=== PATIENT | male | born 1985 ===

== ENCOUNTER 2020-08-14 09:06 | Outpatient (CLI) | payer MEDICAID ==
[2020-08-14 15:14] VITALS: BP 148/77
[2020-08-14] MEDS ORDERED: NEXIUM40 MG ORAL (15:16)
[2020-08-14] MEDS ORDERED: [UNRECOGNIZED DRUG - OTHER] (15:16)
--- NOTE | 2020-08-15 18:29 | Consultation ---
DATE OF CONSULTATION: 08/14/2020 GASTROENTEROLOGY CONSULTATION CONSULTING PHYSICIAN: Haris Andres MD REASON FOR REFERRAL: Abdominal pain in left lower quadrant, GERD symptoms, nausea, vomiting, regurgitation. PAST MEDICAL HISTORY: GERD. PAST SURGICAL HISTORY: Appendectomy. MEDICATIONS: Nexium 40 mg daily. FAMILY HISTORY: Noncontributory. SOCIAL HISTORY: The patient occasionally drinks alcohol. No tobacco usage. No drug usage, but the patient uses marijuana. ALLERGIES: No known allergies. REVIEW OF SYSTEMS: Positive for left lower quadrant abdominal pain, GERD, nausea, vomiting, regurgitation symptoms. PHYSICAL EXAMINATION: VITAL SIGNS: Temperature 97.4, blood pressure 140/77, pulse 64, respirations 20. HEENT: Normocephalic and atraumatic. Sclerae are anicteric. NECK: Supple. No evidence of obvious lymphadenopathy. CARDIOVASCULAR: Regular rate and rhythm. Plus S1, S2. LUNGS: Clear to auscultation bilaterally. ABDOMEN: Positive bowel sounds. Soft and nontender. No rebound. No guarding. No peritoneal sign. EXTREMITIES: No cyanosis. No clubbing. No edema. ASSESSMENT AND PLAN: This is a 35-year-old male with chronic GERD symptoms, who has complaint of solid dysphagia. Apparently, he had a barium swallow evaluation recently, which did not show much. Plan to add baclofen and Nexium and also the patient to be scheduled for endoscopy for further evaluation of solid dysphagia. Haris Andres M.D. DR: Jovanni JOB#: [id number] CC:
== END 2020-08-14 15:15 | disposition home or self-care (01) ==
LOC: PAN 09:06
DX: R10.32 Left lower quadrant pain (principal); R11.2 Nausea with vomiting, unspecified; K21.9 Gastro-esophageal reflux disease without esophagitis; Z90.89 Acquired absence of other organs; Z79.899 Other long term (current) drug therapy
CPT/HCPCS: 99203